=== PATIENT | male | born 2000 | race Caucasian/White ===

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

== ENCOUNTER → 2023-03-16 | Outpatient (CLI) | payer BC ==
--- NOTE | 2023-03-16 12:26 | XR ---
EXAMINATION TYPE: XR ribs RT w pa chest xray DATE OF EXAM: 03/16/2023 12:19 PM INDICATION: Patient age:Male; 23 years old; Reason for study: R07.81 PLEURODYNIA; [facility]. COMPARISON: Chest radiograph 09/27/2012 TECHNIQUE: Frontal and oblique views of the right ribs and frontal chest radiograph. FINDINGS: The ribs have a normal appearance. No evidence of fracture. Overall, the lungs are clear. The cardiac silhouette is normal in size. The remaining osseous structures are intact. IMPRESSION: No acute osseous pathology.
== END | disposition home or self-care (01) ==
LOC: RADXRMAIN 11:59
PROVIDERS: ATTEND Family Medicine
DX: R07.81 Pleurodynia (principal)